=== PATIENT | female | born 1990 | race Caucasian/White ===

== ENCOUNTER 2020-07-20 07:37 | Day surgery (SDC) | payer OTHER ==
[2020-07-20] MEDS ORDERED: Ringers Lactate 1,000 ML IV ONE ×3 (08:18→08:35)
[2020-07-20] MEDS ORDERED: CEFAZOLIN/SWI 1gm 1 GM/10 ML SYR ONE (08:19)
[2020-07-20] MEDS ORDERED: SCOPOLAMINE HYDROBROMIDE PATCH TD ONE (08:19)
[2020-07-20] MEDS ORDERED: Mastisol Adhesive Liq ONE (08:34)
[2020-07-20] MEDS ORDERED: NS 0.9% VIAL 40 ML ONE (08:34)
[2020-07-20] MEDS ORDERED: CEFAZOLIN SODIUM 1 GM/VIAL ONE (08:34)
[2020-07-20] MEDS ORDERED: LIDOCAINE 1% W/EPI 1:100,000 MDV 20 ML VIAL ONE (08:34)
[2020-07-20] MEDS ORDERED: GENTAMICIN SULF 80 MG/2ML INJ ONE (08:34)
[2020-07-20] MEDS ORDERED: BACITRACIN 50000 UNIT VIAL ONE (08:35)
[2020-07-20] MEDS ORDERED: ACETAMINOPHEN 500 MG TAB ONE (08:42)
[2020-07-20] MEDS ORDERED: CELECOXIB 100 MG CAPSULE ONE (08:42)
[2020-07-20] MEDS ORDERED: NS 0.9% VIAL 10 ML ONE (10:07)
[2020-07-20] MEDS ORDERED: FENTANYL CITR 250 MCG/5 ML ONE ×2 (10:07→11:27)
[2020-07-20] MEDS ORDERED: MIDAZOLAM HCL 2 MG/2 ML INJ ONE (10:07)
[2020-07-20] MEDS ORDERED: propofoL 200 MG/20 ML VIAL IV ONE (10:07)
[2020-07-20] MEDS ORDERED: LIDOCAINE 1% MPF 5 ML VIAL ONE (10:07)
[2020-07-20] MEDS ORDERED: dexAMETHasone 10 MG/ML VIAL ONE (10:07)
[2020-07-20] MEDS ORDERED: VECURONIUM 10 MG/VIAL IV ONE ×2 (10:08→11:53)
[2020-07-20] MEDS ORDERED: LANO/MINERAL OIL/PETRO 3.5 GM ONE (10:08)
[2020-07-20] MEDS ORDERED: ONDANSETRON 4 MG/2 ML VIAL ONE ×3 (10:08→15:05)
[2020-07-20] MEDS ORDERED: GLYCOPYRROLATE 0.2 MG/ML SYR ONE (14:06)
[2020-07-20] MEDS ORDERED: KETOROLAC 30 MG/ML INJ ONE (14:06)
[2020-07-20] MEDS ORDERED: NEOSTIGMINE 1 MG/ML -5 ML ONE (14:06)
[2020-07-20] MEDS: PROMETHAZINE INJ 25 MG/ML AMP ONE ×2 (14:51→15:15)
[2020-07-20] MEDS: HYDROMORPHONE HCL 1 MG/ML INJ ONE ×2 (15:18→15:23)
[2020-07-20] MEDS ORDERED: CODEINE 30MG/APAP 300MG TAB ONE (16:25)
[2020-07-20 16:46] VITALS: BP 108/57; TEMP 98.3; O2SAT 98
[2020-07-20] MEDS ORDERED: ONDANSETRON 4 MG (ODT) TAB ONE ×2 (17:49→17:50)
--- NOTE | 2020-07-21 01:32 | OP ---
Surgeon: Pavel Elizabeth MD Preoperative Diagnosis: Breast descent. Postoperative Diagnosis: Breast descent. Procedure Performed: Breast lift. Anesthesia: General. Procedure In Detail: After satisfactory induction of general anesthesia, the chest was prepped with DuraPrep. Dry sterile drapes were applied in the usual manner. A 45 cm template was used to outline the right and left areola. Then 10 blade was used to make incision transverse and curvilinear. Intervening skin was de-epithelialized with dermabrader and EpiCut. Right side was approached first. Dissection was proceeded through the transverse incision down to approximately 1.5 cm. The flap was elevated towards the sternum, clavicle, and anterior axillary line. Then, the inferior incision was made. The de- epithelized tissue was formed in the cone after excess tissue was removed laterally. Conization was performed with 2 0 PDS suture. Straps were elevated at 12 o'clock, 1:30, and 3 o'clock position on the right breast and then the patient had had a breast transposed and the straps were woven in and out of the pectoralis muscle back to the base of the cone back to the pectoralis muscle back to the base of the cone. This was done for the 12 o'clock, 1:30 strap. The 3 o'clock strap was sewn over the sternum at 3 o'clock position with 2-0 Ethibond. The other straps were sewn with 2-0 PDS. Left side done in a mirror- image manner. . The patient was sat up. Lateral dog ears were marked out, excised. The patient returned supine and 10 PAULETTE was brought out of the axilla. Wound was irrigated with antibiotic solution and closed in layers with 3-0 Vicryl for subcutaneous, 3-0 PDS running subcuticular, tied in the vertical midline of the breast. Left side was done in identical manner. The patient was sat up. Site for new nipple-areolar complex was marked out. A 45 mm template was used to ibis the new complex and then the tissue was cored out, nipple was delivered and then sewed with interrupted 4-0 PDS followed by 4-0 PDS running subcuticular. Dressed with tinc of benzoin, Steri-Strips followed by Esmarch, fluffs, and Hamlet wrap. The patient tolerated procedure well. Tissue removed from the right breast was 38, left breast g. GH/MODL Voice ID: [id number] Report ID: [id number]
== END 2020-07-20 17:35 | disposition home or self-care (01) ==
LOC: OR 07:37
PROVIDERS: ATTEND Specialist
PROC: 0HSV0ZZ Reposition Bilateral Breast, Open Approach (ICD-10-PCS; principal; 2020-07-20 09:00)
DX: N64.81 Ptosis of breast (principal); Z20.822 Contact with and (suspected) exposure to COVID-19
CPT/HCPCS: 81025; 88305; 19316; J2704; J2550; J1580; J2250; J3010 ×2; J1100; J1170; J2710; J0690 ×2; J7120 ×3; J2405 ×3